=== PATIENT | male | born 1970 | race American Indian/Alaskan Native ===

== ENCOUNTER 2020-08-15 18:17 | Emergency (ER) | payer SELFPAY ==
--- NOTE | 2020-08-15 20:35 | Emergency Department Report ---
ED Abdominal Pain HPI - General Chief Complaint: GI Bleed Stated Complaint: VOMITTING BLOOD Time Seen by Provider: 08/15/20 20:19 Source: patient Mode of arrival: Ambulatory Limitations: No Limitations - History of Present Illness Initial Comments: 49-year-old male, history of HIV (currently taking Biktarvy, undetectable viral load), presents to ED with complaint of abdominal pain. Patient reports he had an umbilical hernia repair 2 months ago at [facility]. Since the surgery, patient reports he has had some very small areas of purulent leakage from the surgical site. Patient reports he has been dressing it and using antibiotic ointment. Patient states earlier today he began having redness and induration around his umbilicus, along with pain. Patient reports he had 2 episodes of vomiting today. He reports twice today when he attempted to eat he vomited. Patient states it was food contents with streaks of blood in it. He denies any gross hematemesis or blood clots present. Patient reports nonbloody diarrhea for the last 3 days. He denies any fever, cough, shortness of breath, loss of smell or taste, known exposure to anyone who has tested positive for COVID-19. MD Complaint: abdominal pain -: This morning Location: periumbilical Radiation: none Migration to: no migration Severity: moderate Consistency: constant Improves With: nothing Worsens With: other (palpation) Associated Symptoms: nausea, vomiting, diarrhea. denies: fever, hematemesis, hematochezia, melena - Related Data Previous Rx's Medication Instructions Recorded Last Taken Type Naproxen [Naprosyn] 500 mg PO BID #20 tablet 08/15/20 Unknown Rx Ondansetron [Zofran Odt] 4 mg PO Q8HR PRN #20 tab.rapdis 08/15/20 Unknown Rx Allergies Allergy/AdvReac Type Severity Reaction Status Date / Time No Known Allergies Allergy Unverified 11/02/16 11:20 ED Review of Systems ROS: Stated complaint: VOMITTING BLOOD Other details as noted in HPI Comment: All other systems reviewed and negative Constitutional: denies: chills, fever Gastrointestinal: abdominal pain, nausea, vomiting, diarrhea. denies: hematemesis, melena, hematochezia ED Past Medical Hx - Past Medical History Previous Medical History?: Yes Hx HIV: Yes Additional medical history: Umbilical hernia - Surgical History Past Surgical History?: Yes Additional Surgical History: rectal surgery, Umbilical hernia surgery - Social History Smoking Status: Current Every Day Smoker Substance Use Type: Prescribed - Medications Home Medications: Home Medications Medication Instructions Recorded Confirmed Last Taken Type Naproxen [Naprosyn] 500 mg PO BID #20 tablet 08/15/20 Unknown Rx Ondansetron [Zofran Odt] 4 mg PO Q8HR PRN #20 tab.rapdis 08/15/20 Unknown Rx ED Physical Exam - General Limitations: No Limitations General appearance: alert, in no apparent distress - Head Head exam: Present: atraumatic, normocephalic - Eye Eye exam: Present: normal appearance, EOMI - ENT ENT exam: Present: mucous membranes moist - Neck Neck exam: Present: normal inspection - Respiratory Respiratory exam: Present: normal lung sounds bilaterally. Absent: respiratory distress - Cardiovascular Cardiovascular Exam: Present: regular rate, normal rhythm - GI/Abdominal GI/Abdominal exam: Present: other (Periumbilical tenderness, erythema, and induration present with 2 pinhole areas draining purulent discharge). Absent: distended - Extremities Exam Extremities exam: Present: normal inspection - Neurological Exam Neurological exam: Present: alert, oriented X3 - Psychiatric Psychiatric exam: Present: normal affect, normal mood - Skin Skin exam: Present: warm, dry, intact, normal color ED Course Vital Signs 08/15/20 08/15/20 18:48 23:20 Temperature 98.4 F 98.1 F Pulse Rate 96 H 81 Respiratory 18 18 Rate Blood Pressure 144/76 Blood Pressure 122/74 [Left] O2 Sat by Pulse 98 98 Oximetry ED Medical Decision Making - Lab Data Result diagrams: 08/15/20 20:47 08/15/20 20:47 - Medical Decision Making Patient was also seen here in the ED on 07/02/2020, 2 weeks after his hernia repair surgery at [facility]. He was actually transferred to [facility] from the ED secondary to postoperative infection and CT findings showing fluid collection at incision site. Patient again presented to the ED on 07/30/2020 with complaints of pain and issues with his hernia repair. CT at that time showed improvement of the previously seen fluid collection. Patient was advised to follow-up with his surgeons at [facility]. During that visit patient reported that he was taking antibiotics, so no additional antibiotics were prescribed. Today, patient reports nausea and vomiting associated with his abdominal wall pain. Patient is afebrile. WBCs are normal. Remainder of labs are unremarkable. Patient reported some blood-streaked emesis. Hemoglobin is normal. No emesis here in the ED. CT today shows that previously seen fluid collection has completely resolved. Patient states he just finished a course of antibiotics 2 days ago. He does not know the name of it. He states he was taking a "green pill." Patient reports he has a follow-up appointment with the [facility] in 2 days on 08/17/2020. Patient is stable for discharge home at this time. Prescriptions given for Naprosyn and Zofran. He has been advised to follow-up as scheduled with the [facility] surgery clinic in 2 days. - Differential Diagnosis Bowel obstruction, cellulitis, abscess Critical care attestation.: If time is entered above; I have spent that time in minutes in the direct care of this critically ill patient, excluding procedure time. ED Disposition Clinical Impression: Abdominal wall cellulitis, Nausea & vomiting Disposition: DC-01 TO HOME OR SELFCARE Is pt being admited?: No Condition: Stable Instructions: Cellulitis, Adult, Nausea and Vomiting, Adult Prescriptions: Naproxen [Naprosyn] 500 mg PO BID #20 tablet Ondansetron [Zofran Odt] 4 mg PO Q8HR PRN #20 tab.rapdis PRN Reason: Vomiting Referrals: [facility] [Outside] - 2-3 Days Forms: Accompanied Note Time of Disposition: 23:02
[2020-08-15] MEDS ORDERED: ONDANSETRON 4 MG/2 ML INJ IV ONE (20:37)
[2020-08-15] MEDS ORDERED: MORPHINE 2 MG/1 ML INJ IV ONE (20:37)
[2020-08-15 21:03] LABS: Basophils % (Auto) 0.8 % (0.0-1.8); Eosinophils # (Auto) 0.2 K/mm3 (0.0-0.4); Eosinophils % (Auto) 3.7 % (0.0-4.3); Hematocrit 34.8 % (35.5-45.6); Hemoglobin 11.6 gm/dl (11.8-15.2); Lymphocytes # (Auto) 1.6 K/mm3 (1.2-5.4); Lymphocytes % (Auto) 28.9 % (13.4-35.0); Mean Corpuscular HGB Conc 33 % (32-34); Mean Corpuscular Volume 89 fl (84-94); Monocytes # (Auto) 0.5 K/mm3 (0.0-0.8); Monocytes % (Auto) 9.1 % (0.0-7.3); Platelet Count 222 K/mm3 (140-440); Red Blood Count 3.92 M/mm3 (3.65-5.03); Red Cell Distribution Width 15.6 % (13.2-15.2)
[2020-08-15 21:14] LABS: INR 1.07 (0.87-1.13)
[2020-08-15 21:15] LABS: Partial Thromboplastin Time 29.4 Sec. (24.2-36.6)
[2020-08-15 21:21] LABS: Alanine Aminotransferase 6 units/L (7-56); Albumin 3.2 g/dL (3.9-5); BUN/Creatinine Ratio 14; Blood Urea Nitrogen 17 mg/dL (9-20); Calcium 8.6 mg/dL (8.4-10.2); Hemolysis Index 3
[2020-08-15 21:23] LABS: Bilirubin,Direct < 0.2 mg/dL (0-0.2)
--- NOTE | 2020-08-15 22:45 | Cat Scan Report ---
CT ABDOMEN AND PELVIS WITH CONTRAST INDICATION / CLINICAL INFORMATION: abd pain, vomiting, hx umbilical hernia repair. TECHNIQUE: Axial CT images were obtained through the abdomen and pelvis after IV contrast. All CT scans at this location are performed using CT dose reduction for ALARA by means of automated exposure control. COMPARISON: 07/30/2020 FINDINGS: LOWER CHEST: No significant abnormality. LIVER: No significant abnormality. GALLBLADDER: No significant abnormality. BILE DUCTS: No significant abnormality. PANCREAS: No significant abnormality. SPLEEN: No significant abnormality. ADRENALS: No significant abnormality. RIGHT KIDNEY / URETER: No significant abnormality. LEFT KIDNEY / URETER: No significant abnormality. STOMACH / SMALL BOWEL: No significant abnormality. COLON: No significant abnormality. APPENDIX: No significant abnormality. PERITONEUM: Mild fat stranding is noted of the anterior peritoneum adjacent to postsurgical changes o f the ventral abdominal wall. No free air. Noted intra-abdominal complex fluid collection. LYMPH NODES: Stable reactive appearing bilateral inguinal lymph nodes. AORTA / ARTERIES: Stable ectasia of the abdominal aorta with aneurysmal dilatation of the iliac arter ies. IVC / VEINS: No significant abnormality. URINARY BLADDER: No significant abnormality. REPRODUCTIVE ORGANS: No significant abnormality. ADDITIONAL FINDINGS: Worsened inflammatory changes are noted of the midline ventral abdominal wall at the site of prior surgery. The previously noted fluid collection has resolved however there is incre ased fat stranding and inflammatory changes now involving bilateral rectus abdominis muscles. SKELETAL SYSTEM: Multilevel degenerative changes are noted of the spine. Bilateral pars defects are a gain noted at L5 with anterolisthesis. No aggressive osseous lesions. IMPRESSION: 1. Interval worsening of infectious/inflammatory changes at the previously noted midline ventral abdo arvind wall surgical site as described above now involving bilateral rectus abdominis muscles. The pre viously noted air-fluid collection in the superficial soft tissues has resolved. 2. Findings have otherwise not significantly changed prior exam and are described in detail above. Signer Name: David Vela MD Signed: 08/15/2020 10:41 PM Workstation Name: [id number]
[2020-08-15 23:21] VITALS: BP 122/74
== END 2020-08-15 23:21 | disposition home or self-care (01) ==
LOC: ED 18:17
DX: L03.311 Cellulitis of abdominal wall (principal); F17.200 Nicotine dependence, unspecified, uncomplicated; Z98.890 Other specified postprocedural states
CPT/HCPCS: 36415; 74177; 80048; 80076; 83690; 85025; 85610; 85730; 96374; 96375; 99284; J2270; J2405; Q9967

== ENCOUNTER 2020-10-10 18:41 | Emergency (ER) | payer SELFPAY ==
[2020-10-10] MEDS ORDERED: dexAMETHasone 20 MG/5 ML VIAL IM ONE (19:03)
[2020-10-10] MEDS ORDERED: ALBUTEROL 2.5 MG/3 ML NEBU IH ONE (19:03)
[2020-10-10] MEDS ORDERED: IPRATROPIUM 0.02% NEBU 2.5 ML IH ONE (19:03)
--- NOTE | 2020-10-10 19:14 | Emergency Department Report ---
- General Chief Complaint: Pain General Stated Complaint: CHEST PAINS/BODY ACHES Time Seen by Provider: 10/10/20 19:01 Source: patient Mode of arrival: Ambulatory Limitations: No Limitations - History of Present Illness Initial Comments: Patient is a 49-year-old male presents emergency room complaints of a productive cough that began 2 days ago. He has associated green mucus production. Patient states he is a current everyday tobacco smoker and endorses marijuana use. He has associated subjective fever, chills, generalized body aches, shortness of breath, wheezing, diarrhea. He denies any vomiting, chest pain, abdominal pain. He has a past medical history of HIV and states that he is on his antivirals, he reports he is undetectable, he is unsure of his CD4 count. No allergies to medications. He denies any known sick contacts. He denies any recent travel. - Related Data Previous Rx's Medication Instructions Recorded Last Taken Type Naproxen [Naprosyn] 500 mg PO BID #20 tablet 08/15/20 Unknown Rx Ondansetron [Zofran Odt] 4 mg PO Q8HR PRN #20 tab.rapdis 08/15/20 Unknown Rx Albuterol Sulfate [Proventil Hfa] 6.7 gm IH TID PRN #1 hfa.aer.ad 10/10/20 Unknown Rx Azithromycin [Zithromax TAB] 250 mg PO QDAY 5 Days #6 tablet 10/10/20 Unknown Rx Prednisone [predniSONE 10 mg 10 mg PO .TAPER #1 tab.ds.pk 10/10/20 Unknown Rx (6-Day Pack, 21 Tabs)] guaiFENesin ER [Mucinex ER] 600 mg PO BID #14 tablet.er 10/10/20 Unknown Rx Allergies Allergy/AdvReac Type Severity Reaction Status Date / Time No Known Allergies Allergy Unverified 11/02/16 11:20 ED Review of Systems ROS: Stated complaint: CHEST PAINS/BODY ACHES Other details as noted in HPI Comment: All other systems reviewed and negative ED Past Medical Hx - Past Medical History Previous Medical History?: Yes Hx HIV: Yes Additional medical history: Umbilical hernia - Surgical History Additional Surgical History: rectal surgery, Umbilical hernia surgery - Social History Smoking Status: Current Every Day Smoker Substance Use Type: Alcohol - Medications Home Medications: Home Medications Medication Instructions Recorded Confirmed Last Taken Type Naproxen [Naprosyn] 500 mg PO BID #20 tablet 08/15/20 Unknown Rx Ondansetron [Zofran Odt] 4 mg PO Q8HR PRN #20 tab.rapdis 08/15/20 Unknown Rx Albuterol Sulfate [Proventil Hfa] 6.7 gm IH TID PRN #1 hfa.aer.ad 10/10/20 Unknown Rx Azithromycin [Zithromax TAB] 250 mg PO QDAY 5 Days #6 tablet 10/10/20 Unknown Rx Prednisone [predniSONE 10 mg 10 mg PO .TAPER #1 tab.ds.pk 10/10/20 Unknown Rx (6-Day Pack, 21 Tabs)] guaiFENesin ER [Mucinex ER] 600 mg PO BID #14 tablet.er 10/10/20 Unknown Rx ED Physical Exam - General Limitations: No Limitations General appearance: alert, in no apparent distress - Head Head exam: Present: atraumatic, normocephalic - Eye Eye exam: Present: normal appearance - ENT ENT exam: Present: mucous membranes moist - Respiratory Respiratory exam: Present: wheezes (bilaterally expiratory). Absent: respiratory distress, rales, rhonchi, stridor, chest wall tenderness, accessory muscle use, decreased breath sounds - Cardiovascular Cardiovascular Exam: Present: regular rate, normal rhythm, normal heart sounds. Absent: systolic murmur, diastolic murmur, rubs, gallop - Neurological Exam Neurological exam: Present: alert, oriented X3 - Psychiatric Psychiatric exam: Present: normal affect, normal mood - Skin Skin exam: Present: warm, dry, intact ED Course Vital Signs 10/10/20 10/10/20 10/10/20 18:49 19:43 20:35 Temperature 98.3 F 98.6 F Pulse Rate 78 92 H Pulse Rate [ 83 Bilateral Throughout] Respiratory 18 20 Rate Respiratory 18 Rate [Bilateral Throughout] Blood Pressure 146/71 Blood Pressure 137/76 [Left] O2 Sat by Pulse 97 99 Oximetry 10/10/20 20:40 Temperature Pulse Rate Pulse Rate [ Bilateral Throughout] Respiratory 20 Rate Respiratory Rate [Bilateral Throughout] Blood Pressure Blood Pressure [Left] O2 Sat by Pulse 99 Oximetry ED Medical Decision Making - Lab Data Vital Signs 10/10/20 10/10/20 10/10/20 18:49 19:43 20:35 Temperature 98.3 F 98.6 F Pulse Rate 78 92 H Pulse Rate [ 83 Bilateral Throughout] Respiratory 18 20 Rate Respiratory 18 Rate [Bilateral Throughout] Blood Pressure 146/71 Blood Pressure 137/76 [Left] O2 Sat by Pulse 97 99 Oximetry 10/10/20 20:40 Temperature Pulse Rate Pulse Rate [ Bilateral Throughout] Respiratory 20 Rate Respiratory Rate [Bilateral Throughout] Blood Pressure Blood Pressure [Left] O2 Sat by Pulse 99 Oximetry - Radiology Data Radiology results: report reviewed Chest x-ray no acute findings - Medical Decision Making Patient is a 49-year-old male presents emergency room complaints of a productive cough that began 2 days ago. He has associated green mucus production. Patient states he is a current everyday tobacco smoker and endorses marijuana use. He has associated subjective fever, chills, generalized body aches, shortness of breath, wheezing, diarrhea. He denies any vomiting, chest pain, abdominal pain. He has a past medical history of HIV and states that he is on his antivirals, he reports he is undetectable, he is unsure of his CD4 count. No allergies to medications. He denies any known sick contacts. He denies any recent travel. Vitals are stable. On exam patient has expiratory wheezing bilaterally, no respiratory distress, no accessory muscle use, no stridor. Chest x-ray no acute findings. Symptoms likely related to acute bronchitis. Discussed smoking cessation with patient. Patient is presenting with the symptoms during COVID-19 pandemic, discussed COVID-19 with patient, discussed return precautions, discussed outpatient testing, discussed self quarantine. Patient given prescription for azithromycin, prednisone, mucinex, albuterol inhaler. Advised patient Please take medication as prescribed. Please increase your fluid intake over the next several days. May take Tylenol as needed for fever or body aches. Follow-up with a primary care doctor for reexamination. Return to emergency room immediately for any new or worsening symptoms including but not limited to difficulty breathing, shortness of breath, severe chest pain, unable to tolerate by mouth intake, etc. Please self quarantine for 10 days from the onset of your symptoms. Please do not go out in public. If you are around others at home please wear a mask. If you need to cough or sneeze please do so in a napkin and immediately throw it away and immediately wash your hands. Wash your hands frequently. Wipe everything down. Recommend for you to get COVID-19 testing, may have this done at primary care doctor, health department, [facility], etc. Critical care attestation.: If time is entered above; I have spent that time in minutes in the direct care of this critically ill patient, excluding procedure time. ED Disposition Clinical Impression: Acute bronchitis Qualifiers: Bronchitis organism: unspecified organism Qualified Code(s): J20.9 - Acute bronchitis, unspecified Disposition: DC-01 TO HOME OR SELFCARE Is pt being admited?: No Does the pt Need Aspirin: No Condition: Stable Instructions: Acute Bronchitis, Adult, Acute Bronchitis (ED) Additional Instructions: Please take medication as prescribed. Please increase your fluid intake over the next several days. May take Tylenol as needed for fever or body aches. Follow-up with a primary care doctor for reexamination. Return to emergency room immediately for any new or worsening symptoms including but not limited to difficulty breathing, shortness of breath, severe chest pain, unable to tolerate by mouth intake, etc. Please self quarantine for 10 days from the onset of your symptoms. Please do not go out in public. If you are around others at home please wear a mask. If you need to cough or sneeze please do so in a napkin and immediately throw it away and immediately wash your hands. Wash your hands frequently. Wipe everything down. Recommend for you to get COVID-19 testing, may have this done at primary care doctor, health department, [facility], etc. Prescriptions: guaiFENesin ER [Mucinex ER] 600 mg PO BID #14 tablet.er Prednisone [predniSONE 10 mg (6-Day Pack, 21 Tabs)] 10 mg PO .TAPER #1 tab.ds.pk Albuterol Sulfate [Proventil Hfa] 6.7 gm IH TID PRN #1 hfa.aer.ad PRN Reason: shortness of breath/wheezing Azithromycin [Zithromax TAB] 250 mg PO QDAY 5 Days #6 tablet Referrals: PRIMARY MD EL [Primary Care Provider] - 2-3 Days BECKI NIX MD [Staff Physician] - 2-3 Days [facility] [Provider Group] - 2-3 Days Forms: Work/School Release Form(ED) Time of Disposition: 20:20 Print Language: TAMAZIGHT
--- NOTE | 2020-10-10 19:30 | XRay Report ---
CHEST 2 VIEWS INDICATION / CLINICAL INFORMATION: productive cough. COMPARISON: None available. FINDINGS: SUPPORT DEVICES: None. HEART / MEDIASTINUM: No significant abnormality. LUNGS / PLEURA: No significant pulmonary or pleural abnormality. No pneumothorax. ADDITIONAL FINDINGS: No significant additional findings. IMPRESSION: 1. No acute findings. Signer Name: Ashok Husain MD Signed: 10/10/2020 7:26 PM Workstation Name: [id number]
[2020-10-10 20:45] VITALS: BP 137/76
== END 2020-10-10 20:53 | disposition home or self-care (01) ==
LOC: ED 18:41
DX: J20.9 Acute bronchitis, unspecified (principal); F17.200 Nicotine dependence, unspecified, uncomplicated; Z79.899 Other long term (current) drug therapy; Z21 Asymptomatic human immunodeficiency virus [HIV] infection status; Z98.890 Other specified postprocedural states
CPT/HCPCS: 71046; 94640; 96372; 99283; J1100; 94644

== ENCOUNTER 2020-12-17 09:13 | Emergency (ER) | payer SELFPAY ==
[2020-12-17 09:27] VITALS: BP 129/73
[2020-12-17] MEDS ORDERED: ASPIRIN 325 MG TAB PO ONE (09:37)
[2020-12-17 09:55] LABS: Basophils # (Auto) 0.1 K/mm3 (0.0-0.1); Basophils % (Auto) 1.1 % (0.0-1.8); Eosinophils # (Auto) 0.2 K/mm3 (0.0-0.4); Eosinophils % (Auto) 3.9 % (0.0-4.3); Hematocrit 43.5 % (35.5-45.6); Hemoglobin 14.6 gm/dl (11.8-15.2); Lymphocytes # (Auto) 1.3 K/mm3 (1.2-5.4); Lymphocytes % (Auto) 25.3 % (13.4-35.0); Mean Corpuscular HGB Conc 34 % (32-34); Mean Corpuscular Volume 90 fl (84-94); Monocytes # (Auto) 0.4 K/mm3 (0.0-0.8); Monocytes % (Auto) 7.5 % (0.0-7.3); Platelet Count 176 K/mm3 (140-440); Red Blood Count 4.82 M/mm3 (3.65-5.03); Red Cell Distribution Width 16.9 % (13.2-15.2)
--- NOTE | 2020-12-17 10:00 | XRay Report ---
CHEST 2 VIEWS INDICATION: Chest pain. COMPARISON: 12/07/2020 FINDINGS: Support devices: None. Heart: Within normal limits. Lungs/pleura: No acute air space or interstitial disease. No pneumothorax. Additional findings: None. IMPRESSION: No acute findings. No change since 12/07/2020. Signer Name: Sky Boucher Jr, MD Signed: 12/17/2020 9:56 AM Workstation Name: [id number]
[2020-12-17 10:19] LABS: Alanine Aminotransferase 16 units/L (7-56); Albumin 3.5 g/dL (3.9-5); BUN/Creatinine Ratio 14; Blood Urea Nitrogen 17 mg/dL (9-20); Calcium 8.8 mg/dL (8.4-10.2); Hemolysis Index 2
--- NOTE | 2020-12-17 10:58 | Emergency Department Report ---
ED Chest Pain HPI - General Chief Complaint: Chest Pain Stated Complaint: BODY ACHES Time Seen by Provider: 12/17/20 10:10 Source: patient, EMS Mode of arrival: Stretcher Limitations: No Limitations - History of Present Illness Initial Comments: This is a 50-year-old man who states that the principal reason why came to the emergency department was chest pain which occurred while he was walking to a store. He states it involves the entire anterior aspect of his chest and did not radiate. It was nonpleuritic. He did not experience any sweating or sh ortness of breath. He stated felt like a soreness. Duration was less than an hour. The pain is totally resolved now. The patient states that he had a heart attack treated at [facility] with a "2-day" d uration admission 2 years ago. The patient does not describe having a cardiac catheterization. He had no percutaneous coronary intervention. He can provide no other detail regarding this admission. Patient states he had an apparent ventral herniorrhaphy 6 months ago at [facility]. He was noncompliant with the surgical follow-up. He states that he started to notice that he was draining pus from his abdomen 2 days ago. He does not report fever or chills. He does not complain of acute abdominal pain. He does state that his abdomen has been chronically tender. Does not report vomiting or knutson ge in his bowel habit. MD Complaint: chest pain -: Gradual, minutes(s) Onset: other (Walking) Pain Location: other (Entire anterior chest) Pain Radiation: none Severity: mild, moderate Quality: sharp (Sharp and soreness) Improves With: nothing (Spontaneously resolved) Worsens With: nothing Context: other (Surgery 6 months ago) re: denies: nausea, vomting, diaphoresis, dyspnea, sense of impending doom Other Symptoms: denies: cough, fever, syncope Treatments Prior to Arrival: none - Related Data Previous Rx's Medication Instructions Recorded Last Taken Type Naproxen [Naprosyn] 500 mg PO BID #20 tablet 08/15/20 Unknown Rx Ondansetron [Zofran Odt] 4 mg PO Q8HR PRN #20 tab.rapdis 08/15/20 Unknown Rx Albuterol Sulfate [Proventil Hfa] 6.7 gm IH TID PRN #1 hfa.aer.ad 10/10/20 Unknown Rx Azithromycin [Zithromax TAB] 250 mg PO QDAY 5 Days #6 tablet 10/10/20 Unknown Rx Prednisone [predniSONE 10 mg 10 mg PO .TAPER #1 tab.ds.pk 10/10/20 Unknown Rx (6-Day Pack, 21 Tabs)] guaiFENesin ER [Mucinex ER] 600 mg PO BID #14 tablet.er 10/10/20 Unknown Rx Sulfamethoxazole/Trimethoprim 1 each PO BID #20 tablet 12/17/20 Unknown Rx [Bactrim DS TAB] traMADoL [Ultram 50 MG tab] 50 mg PO Q6HR PRN #7 tablet 12/17/20 Unknown Rx Allergies Allergy/AdvReac Type Severity Reaction Status Date / Time No Known Allergies Allergy Unverified 11/02/16 11:20 Heart Score - HEART Score History: Slightly suspicious EKG: Non-specific Age: 45-65 Risk factors: 1-2 risk factors Troponin: < normal limit HEART Score: 3 - EKG Read Time Time EKG Completed: 09:29 EKG Read Time: 09:30 - Critical Actions Critical Actions: 0-3 pts:0.9-1.7%risk of adverse cardiac event.Candidate for discharge ED Review of Systems ROS: Stated complaint: BODY ACHES Other details as noted in HPI Constitutional: denies: chills, fever Eyes: eye discharge. denies: eye pain, vision change ENT: denies: ear pain, throat pain Respiratory: denies: cough, shortness of breath Cardiovascular: chest pain. denies: palpitations Endocrine: no symptoms reported Gastrointestinal: abdominal pain. denies: nausea, diarrhea Genitourinary: denies: urgency, dysuria Musculoskeletal: joint swelling. denies: back pain, arthralgia Skin: denies: rash, lesions Neurological: denies: headache, weakness, paresthesias Psychiatric: denies: anxiety, depression Hematological/Lymphatic: denies: easy bleeding, easy bruising ED Past Medical Hx - Past Medical History Previous Medical History?: Yes Hx Heart Attack/AMI: Yes Hx HIV: Yes Additional medical history: Umbilical hernia - Surgical History Past Surgical History?: Yes Additional Surgical History: rectal surgery, Umbilical hernia surgery - Social History Smoking Status: Current Every Day Smoker Substance Use Type: Alcohol, Marijuana - Medications Home Medications: Home Medications Medication Instructions Recorded Confirmed Last Taken Type Naproxen [Naprosyn] 500 mg PO BID #20 tablet 08/15/20 Unknown Rx Ondansetron [Zofran Odt] 4 mg PO Q8HR PRN #20 tab.rapdis 08/15/20 Unknown Rx Albuterol Sulfate [Proventil Hfa] 6.7 gm IH TID PRN #1 hfa.aer.ad 10/10/20 Unknown Rx Azithromycin [Zithromax TAB] 250 mg PO QDAY 5 Days #6 tablet 10/10/20 Unknown Rx Prednisone [predniSONE 10 mg 10 mg PO .TAPER #1 tab.ds.pk 10/10/20 Unknown Rx (6-Day Pack, 21 Tabs)] guaiFENesin ER [Mucinex ER] 600 mg PO BID #14 tablet.er 10/10/20 Unknown Rx Sulfamethoxazole/Trimethoprim 1 each PO BID #20 tablet 12/17/20 Unknown Rx [Bactrim DS TAB] traMADoL [Ultram 50 MG tab] 50 mg PO Q6HR PRN #7 tablet 12/17/20 Unknown Rx ED Physical Exam - General Limitations: No Limitations General appearance: alert, in no apparent distress - Head Head exam: Present: atraumatic, normocephalic - Eye Eye exam: Present: normal appearance. Absent: scleral icterus - ENT ENT exam: Present: mucous membranes moist - Neck Neck exam: Present: normal inspection - Respiratory Respiratory exam: Present: normal lung sounds bilaterally, chest wall tenderness. Absent: respiratory distress - Cardiovascular Cardiovascular Exam: Present: regular rate, normal rhythm. Absent: systolic murmur, diastolic murmur, rubs, gallop - GI/Abdominal GI/Abdominal exam: Present: soft, tenderness (Generalized tenderness), normal bowel sounds, other (There is purulent material draining from an anterior site. Erythema and induration are noted.). Absent: guarding, rebound, rigid - Rectal Rectal exam: Present: deferred - Extremities Exam Extremities exam: Present: normal inspection - Back Exam Back exam: Present: normal inspection - Neurological Exam Neurological exam: Present: alert, oriented X3, CN II-XII intact. Absent: motor sensory deficit - Psychiatric Psychiatric exam: Present: normal affect, normal mood - Skin Skin exam: Present: warm, dry, intact, normal color. Absent: rash ED Course Vital Signs 12/17/20 09:24 Temperature 97.9 F Pulse Rate 88 Respiratory 20 Rate Blood Pressure 129/73 O2 Sat by Pulse 98 Oximetry ED Medical Decision Making - Lab Data Result diagrams: 12/17/20 09:41 12/17/20 09:41 Laboratory Results - last 24 hr 12/17/20 12/17/20 09:41 09:41 WBC 5.3 RBC 4.82 Hgb 14.6 Hct 43.5 MCV 90 MCH 30 MCHC 34 RDW 16.9 H Plt Count 176 Lymph % (Auto) 25.3 [place] % (Auto) 7.5 H Eos % (Auto) 3.9 Baso % (Auto) 1.1 Lymph # (Auto) 1.3 [place] # (Auto) 0.4 Eos # (Auto) 0.2 Baso # (Auto) 0.1 Seg Neutrophils % 62.2 Seg Neutrophils # 3.3 Sodium 135 L Potassium 3.7 Chloride 100.2 Carbon Dioxide 24 Anion Gap 15 BUN 17 Creatinine 1.2 Estimated GFR > 60 BUN/Creatinine Ratio 14 Glucose 104 H Calcium 8.8 Total Bilirubin 0.80 AST 26 ALT 16 Alkaline Phosphatase 106 Troponin T < 0.010 Total Protein 7.4 Albumin 3.5 L Albumin/Globulin Ratio 0.9 - EKG Data -: EKG Interpreted by Me EKG shows normal: sinus rhythm, axis, intervals, ST-T waves Rate: normal - EKG Data Interpretation: no acute changes, LVH (LAFB, left atrial enlargement) - Radiology Data Radiology results: report reviewed interpreted by me: CTA CHEST WITH CONTRAST INDICATION : Chest pain, abdominal surgery 6 months ago. TECHNIQUE: Axial imaging performed through the chest, with contrast bolus timing set to maximize opacification of the pulmonary arteries. Sagittal and coronal reformatted images. 3-plane MIP refor matted images were obtained. All CT scans at this location are performed using CT dose reduction for ALARA by means of automated exposure control. 100 mL of intravenous contrast administered. COMPARISON: None FINDINGS: Bolus: Contrast bolus is slightly limited with poor opacification of the distal, small pulmonary arteries. PTE: No filling defect is present to suggest PTE. Mediastinum: Mild cardiomegaly is evident. No pericardial abnormality. The thoracic aorta is unremarkable. No pathologic mediastinal adenopathy. Lungs: Lungs are clear with no evidence for infiltrate, pleural fluid or pneumothorax. Mild paraseptal emphysematous changes are noted at the lung apices. Bones: No significant abnormality. IMPRESSION: Slightly limited exam to detect pulmonary embolus. No large central pulmonary embolus. Mild cardiomegaly. Lungs clear. CT ABDOMEN AND PELVIS WITH CONTRAST INDICATION / CLINICAL INFORMATION: Abdominal pain, abdominal surgery 6 months ago TECHNIQUE: Axial CT images were obtained through the abdomen and pelvis after 100 cc IV contrast. Sagittal and coronal reformatted images. All CT scans at this location are performed using CT dose reduction for ALARA by means of automated exposure control. COMPARISON: 12/07/2020 FINDINGS: LIVER: No significant abnormality. GALLBLADDER: No significant abnormality. BILE DUCTS: No significant abnormality. PANCREAS: No significant abnormality. SPLEEN: No significant abnormality. ADRENALS: No significant abnormality. RIGHT KIDNEY and URETER: No significant abnormality. LEFT KIDNEY and URETER: No significant abnormality. STOMACH and SMALL BOWEL: No significant abnormality. COLON: No significant abnormality. APPENDIX: No significant abnormality. PERITONEUM: No free fluid. No free air. No fluid collection. LYMPH NODES: No significant adenopathy. AORTA and ARTERIES: No significant abnormality. IVC and VEINS: No significant abnormality. URINARY BLADDER: No significant abnormality. REPRODUCTIVE ORGANS: No significant abnormality. ADDITIONAL FINDINGS: There is nonspecific subcutaneous induration and scarring in the midline anterior abdominal wall which is unchanged. This appears to represent previous ventral wall hernia repair, correlate with history. There is no obvious recurrent hernia, fluid collection or acute inflammation. SKELETAL SYSTEM: Stable mild lumbar spondylosis. IMPRESSION: No acute inflammatory process is appreciated in the abdomen or pelvis. Stable appearance of the surgical changes/scarring in the anterior abdominal wall. Signer Name: Sky Kirby Jr, MD Signed: 12/17/2020 11:59 AM Workstation Name: [id number] Transcribed By: TTR Dictated By: SKY KIRBY JR, MD Electronically Authenticated By: SKY KIRBY JR, MD Signed Date/Time: 12/17/20 1159 DD/ 1148 TD/TT: Critical care attestation.: If time is entered above; I have spent that time in minutes in the direct care of this critically ill patient, excluding procedure time. ED Disposition Clinical Impression: Chest pain Qualifiers: Chest pain type: unspecified Qualified Code(s): R07.9 - Chest pain, unspecified Abdominal pain Qualifiers: Abdominal location: unspecified location Qualified Code(s): R10.9 - Unspecified abdominal pain Cellulitis Qualifiers: Site of cellulitis: trunk Site of cellulitis of trunk: abdominal wall Qualified Code(s): L03.311 - Cellulitis of abdominal wall Disposition: TO HOME OR SELFCARE Is pt being admited?: No Does the pt Need Aspirin: No Condition: Stable Instructions: Nonspecific Chest Pain, Adult, Cellulitis, Adult, [id number], Abdominal Pain, Adult Additional Instructions: It is essential that you follow-up with your surgical clinic at [facility]. I would recommend you take the prescribed antibiotic. It is possible that you have a staph infection. Return fever chills any acute change or problem as needed. Postsurgical problems are best taking care of at the facility where they were done. Prescriptions: Sulfamethoxazole/Trimethoprim [Bactrim DS TAB] 1 each PO BID #20 tablet traMADoL [Ultram 50 MG tab] 50 mg PO Q6HR PRN #7 tablet PRN Reason: Pain Referrals: [facility] [Provider Group] - 3-5 Days Surgical clinic, [facility] [Other] - 3-5 Days
--- NOTE | 2020-12-17 12:04 | Cat Scan Report ---
CTA CHEST WITH CONTRAST INDICATION : Chest pain, abdominal surgery 6 months ago. TECHNIQUE: Axial imaging performed through the chest, with contrast bolus timing set to maximize opa cification of the pulmonary arteries. Sagittal and coronal reformatted images. 3-plane MIP reformatte d images were obtained. All CT scans at this location are performed using CT dose reduction for ALAR A by means of automated exposure control. 100 mL of intravenous contrast administered. COMPARISON: None FINDINGS: Bolus: Contrast bolus is slightly limited with poor opacification of the distal, small pulmonary art eries. PTE: No filling defect is present to suggest PTE. Mediastinum: Mild cardiomegaly is evident. No pericardial abnormality. The thoracic aorta is unremar kable. No pathologic mediastinal adenopathy. Lungs: Lungs are clear with no evidence for infiltrate, pleural fluid or pneumothorax. Mild parasept al emphysematous changes are noted at the lung apices. Bones: No significant abnormality. IMPRESSION: Slightly limited exam to detect pulmonary embolus. No large central pulmonary embolus. Mild cardiomegaly. Lungs clear. CT ABDOMEN AND PELVIS WITH CONTRAST INDICATION / CLINICAL INFORMATION: Abdominal pain, abdominal surgery 6 months ago TECHNIQUE: Axial CT images were obtained through the abdomen and pelvis after 100 cc IV contrast. Sagittal and c oronal reformatted images. All CT scans at this location are performed using CT dose reduction for AL HALLIE by means of automated exposure control. COMPARISON: 12/07/2020 FINDINGS: LIVER: No significant abnormality. GALLBLADDER: No significant abnormality. BILE DUCTS: No significant abnormality. PANCREAS: No significant abnormality. SPLEEN: No significant abnormality. ADRENALS: No significant abnormality. RIGHT KIDNEY and URETER: No significant abnormality. LEFT KIDNEY and URETER: No significant abnormality. STOMACH and SMALL BOWEL: No significant abnormality. COLON: No significant abnormality. APPENDIX: No significant abnormality. PERITONEUM: No free fluid. No free air. No fluid collection. LYMPH NODES: No significant adenopathy. AORTA and ARTERIES: No significant abnormality. IVC and VEINS: No significant abnormality. URINARY BLADDER: No significant abnormality. REPRODUCTIVE ORGANS: No significant abnormality. ADDITIONAL FINDINGS: There is nonspecific subcutaneous induration and scarring in the midline anterio r abdominal wall which is unchanged. This appears to represent previous ventral wall hernia repair, c orrelate with history. There is no obvious recurrent hernia, fluid collection or acute inflammation. SKELETAL SYSTEM: Stable mild lumbar spondylosis. IMPRESSION: No acute inflammatory process is appreciated in the abdomen or pelvis. Stable appearance of the surg ical changes/scarring in the anterior abdominal wall. Signer Name: Sky Boucher Jr, MD Signed: 12/17/2020 11:59 AM Workstation Name: [id number]
--- NOTE | 2020-12-17 17:19 | Electrocardiograph Report ---
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
== END 2020-12-17 13:50 | disposition home or self-care (01) ==
LOC: ED 09:13
DX: L03.311 Cellulitis of abdominal wall (principal); I25.2 Old myocardial infarction; Z21 Asymptomatic human immunodeficiency virus [HIV] infection status; F17.200 Nicotine dependence, unspecified, uncomplicated; F12.10 Cannabis abuse, uncomplicated; Z79.899 Other long term (current) drug therapy
CPT/HCPCS: 36415; 71046; 71275; 74177; 80053; 84484; 85025; 93005; 99284; Q9967